=== PATIENT | male | born 1995 | race African-American/Black ===

== ENCOUNTER 2021-09-04 03:59 | Emergency (ER) | payer MEDICAID ==
[~2021-09-04] VITALS: Ht 185.4 cm; Wt 120.2 kg
[2021-09-04 04:01] VITALS: BP 133/85
[2021-09-04 04:50] LABS: CHLORIDE 110 mEq/L (98-107)
[2021-09-04 04:53] LABS: ETHANOL BLOOD 143 mg/dL
[2021-09-04 04:54] LABS: BASOPHILS % 0.6 % (0.0-2.0); EOSINOPHILS % 0.7 % (0.0-5.0); HEMATOCRIT. 46.9 % (42.0-52.0); HEMOGLOBIN. 15.7 g/dL (14.0-18.0); LYMPHOCYTES % 18.8 % (20.0-50.0); MEAN CORPUSCULAR HEMOGLOBIN 29.1 pg (28.0-32.0); MEAN CORPUSCULAR VOLUME 86.7 fL (80.0-94.0); MEAN PLATELET VOLUME 7.8 fl (7.4-10.4); MONOCYTES % 9.8 % (2.0-8.0); NEUTROPHILS % 70.1 % (40.0-76.0); PLATELET 257 x1000/uL (130-400); RED BLOOD CELL COUNT 5.41 mill/uL (4.7-6.1); RED CELL DISTRIBUTION WIDTH 13.5 % (11.6-14.6)
== END 2021-09-04 06:17 | disposition home or self-care (01) ==
LOC: ER 03:59
DX: F10.129 Alcohol abuse with intoxication, unspecified (principal); R51.9 Headache, unspecified; Y90.6 Blood alcohol level of 120-199 mg/100 ml
CPT/HCPCS: 36415; 80053; 80320; 85025; 99284; G0480